=== PATIENT | male | born 1960 | race Caucasian/White ===

== ENCOUNTER 2018-12-12 01:11 | Inpatient (IN) | payer OTHER ==
[~2018-12-12] VITALS: Ht 182.9 cm; Wt 118.8 kg
[2018-12-12 01:21] VITALS: Ht 182.9 cm; Wt 118.8 kg
[2018-12-12 03:08] LABS: BASOPHIL % 0.4 % (0-2); PLATELET COUNT 254 x10^3mcL (130-400); RED CELL DISTRIBUTION WIDTH 13.8 % (11.5-14.5)
[2018-12-12 03:19] LABS: CALCIUM 8.5 mg/dL (8.5-10.1); CARBON DIOXIDE 22.5 mmol/L (21-32); CHLORIDE SERUM 95 mmol/L (98-107); CREATININE SERUM 0.7 mg/dL (0.7-1.3); GFR1 > 60 mL/min; GLUCOSE SERUM 76 mg/dL (74-106); POTASSIUM SERUM 4.1 mmol/L (3.5-5.1); SODIUM SERUM 131 mmol/L (136-145)
[2018-12-12 03:26] LABS: OSMOLALITY SERUM 336 mOsm/kg (278-298)
[2018-12-12 03:45] LABS: ALBUMIN 3.7 g/dL (3.4-5.0); ALKALINE PHOSPHATASE 48 U/L (46-116); ALT/SGPT 45 U/L (16-63); AST/SGOT 40 U/L (15-37); BILIRUBIN TOTAL 0.33 mg/dL (0.20-1.00); FREE T4 0.93 ng/dL (0.76-1.46); LIPASE 330 IU/L (73-393); TOTAL PROTEIN, SERUM 7.5 g/dL (6.4-8.2)
[2018-12-12] MEDS ORDERED: AMARYL4 MG (04:01)
[2018-12-12] MEDS ORDERED: DIOVAN320 MG (04:01)
[2018-12-12] MEDS ORDERED: TENORMIN50 MG (04:01)
[2018-12-12] MEDS ORDERED: METFORMIN HCL1000 MG (04:02)
[2018-12-12] MEDS ORDERED: LIPI20 (04:02)
[2018-12-12] MEDS ORDERED: KAPVAY0.1 MG (04:02)
[2018-12-12] MEDS ORDERED: TRULICITY0.75 MG/0. (04:02)
[2018-12-12] MEDS ORDERED: NEXIUM40 MG (04:02)
[2018-12-12] MEDS ORDERED: PAROXETINE HCL30 MG (04:02)
[2018-12-12 04:04] LABS: microscopic required? NO
[2018-12-12 04:08] LABS: UA SPECIFIC GRAVITY <=1.005 (1.005-1.035); urine erythrocyte NEGATIVE (NEGATIVE)
[2018-12-12 04:16] LABS: AMPHETAMINE QUAL UR NONE DETECTED (See below)
[2018-12-12 04:36] LABS: CHOLESTEROL/HDL RATIO 3.2; MAGNESIUM 1.7 mg/dL (1.8-2.4); PHOSPHOROUS 3.5 mg/dL (2.5-4.9)
[2018-12-12 05:15] VITALS: BP 138/58
[2018-12-12 08:13] VITALS: BP 129/67
[2018-12-12 12:00] VITALS: BP 129/67
== END 2018-12-12 13:22 | disposition home or self-care (01) | DRG 641 ==
LOC: ED 01:11 → DU 04:00
PROVIDERS: Emergency Medicine; ADMIT General Practice
DX: E87.1 Hypo-osmolality and hyponatremia (principal); E87.2 Acidosis; I10 Essential (primary) hypertension; F41.9 Anxiety disorder, unspecified; E78.00 Pure hypercholesterolemia, unspecified; E11.65 Type 2 diabetes mellitus with hyperglycemia; E83.42 Hypomagnesemia; F10.120 Alcohol abuse with intoxication, uncomplicated; Y90.9 Presence of alcohol in blood, level not specified; W18.39XA Other fall on same level, initial encounter; Y93.89 Activity, other specified; Y92.89 Other specified places as the place of occurrence of the external cause; Y99.8 Other external cause status
CPT/HCPCS: 82962; 83880; 84439; G0480; J3490; J7030; Q0092